=== PATIENT | female | born 1975 | race African-American/Black ===

== ENCOUNTER 2022-06-06 19:04 | Inpatient (IN) | payer OTHER ==
[~2022-06-06] VITALS: Ht 157.5 cm; Wt 80.7 kg
--- NOTE | 2022-06-06 19:04 | NUR ---
PT BIB [facility] FROM HOME C/O NAUSEA/VOMITTING X 2HRS. PT A/OX4. TOLERATING R/A WELL WITH NO RESP DISTRESS. SAFETY MEASURES IN PLACE.
[2022-06-06] MEDS ORDERED: ONDANSETRON HCL/PF 4 MG/2 ML VIAL IVP ONE (19:30)
[2022-06-06] MEDS ORDERED: IV NS 0.9% 1,000 ML BAG IV ONE (19:30)
[2022-06-06] MEDS ORDERED: MECLIZINE HCL 12.5 MG TABLET PO ONE (19:30)
--- NOTE | 2022-06-06 19:49 | NUR ---
PT RETURNED TO ER BED [address]
[2022-06-06 19:51] LABS: ALBUMIN 3.5 g/dL (3.4-5.0); BILIRUBIN,DIRECT 0.1 mg/dL (0.0-0.2); BILIRUBIN,TOTAL 0.4 mg/dL (0.2-1.0); CALCIUM, SERUM 8.5 mg/dL (8.5-10.1); CREATININE 0.8 mg/dL (0.6-1.3); POTASSIUM 4.9 mmol/L (3.5-5.1); TOTAL PROTEIN, SERUM 7.6 g/dL (6.4-8.2)
[2022-06-06] MEDS ORDERED: ONDANSETRON HCL/PF 4 MG/2 ML VIAL ONE (19:53)
[2022-06-06 19:54] LABS: BASOPHILS # (AUTO) 0.1 K/uL (0.0-0.2); BASOPHILS % (AUTO) 1.1 % (0.0-2.0); EOSINOPHILS % (AUTO) 0.7 % (0.0-6.0); HEMATOCRIT 35 % (33-45); HEMOGLOBIN 11.2 g/dL (11.5-14.8); LYMPHOCYTES # (AUTO) 1.6 K/uL (0.8-4.8); LYMPHOCYTES % (AUTO) 17.7 % (20.0-44.0); MEAN CORPUSCULAR HGB CONC 33 g/dl (31.0-36.0); MEAN CORPUSCULAR VOLUME 86 fL (82-100); MONOCYTES # (AUTO) 0.5 K/uL (0.1-1.30); MONOCYTES % (AUTO) 5.8 % (2.0-12.0); NEUTROPHILS # (AUTO) 6.7 K/uL (1.8-8.9); NEUTROPHILS % (AUTO) 74.7 % (43.0-81.0); PLATELET COUNT (AUTO) 324 K/uL (150-450); RED BLOOD CELL COUNT(AUTO) 4.01 MIL/uL (4.0-5.2)
[2022-06-06] MEDS ORDERED: MECLIZINE HCL 25 MG TABLET ONE (19:54)
[2022-06-06] MEDS ORDERED: DIAZEPAM 5 MG/ML 2 ML DISP.SYRIN ONE ×2 (20:46→23:42)
[2022-06-06] MEDS ORDERED: DIAZEPAM 5 MG/ML 2 ML DISP.SYRIN IV ONE ×2 (21:00→23:30)
[2022-06-07] MEDS ORDERED: METOCLOPRAMIDE HCL 10 MG/2 ML VIAL ONE (00:08)
--- NOTE | 2022-06-07 00:22 | NUR ---
COVID AND URINE COLLECTED AND SENT TO LAB
--- NOTE | 2022-06-07 00:25 | NUR ---
PT TAKEN TO CT [facility]IA [facility]
[2022-06-07] MEDS ORDERED: METOCLOPRAMIDE HCL 10 MG/2 ML VIAL IV ONE (00:30)
[2022-06-07] MEDS ORDERED: MAGNESIUM HYDROXIDE 30 ML UDC PO PRN (01:00)
[2022-06-07] MEDS ORDERED: ZOLPIDEM TARTRATE 5 MG TABLET PO PRN (01:00)
[2022-06-07] MEDS ORDERED: ACETAMINOPHEN 325 MG TABLET PO PRN (01:00)
[2022-06-07] MEDS ORDERED: HYDROCODONE/APAP 5/325MG TABLET PO PRN (01:00)
[2022-06-07] MEDS ORDERED: MAG HYDROX/AL HYDROX/SIMETH 30 ML UDC PO PRN (01:00)
[2022-06-07] MEDS ORDERED: Z GUARD REMEDY 4 OZ OINT TP PRN (01:00)
[2022-06-07] MEDS ORDERED: LORAZEPAM 1 MG TABLET PO PRN (01:00)
[2022-06-07] MEDS ORDERED: ONDANSETRON HCL/PF 4 MG/2 ML VIAL IVP PRN (01:00)
--- NOTE | 2022-06-07 01:12 | NUR ---
REPORT GIVEN TO RAJANI Goodman RN FOR OG
[2022-06-07] MEDS ORDERED: MORPHINE SULFATE INJ 4 MG/ML DISP.SYRIN IV PRN (02:30)
--- NOTE | 2022-06-07 03:02 | NUR ---
PT TRANSFERRING TO [facility]. VSS. ALL BELONGINGS WITH PT.
--- NOTE | 2022-06-07 03:05 | NUR ---
MS AUTOMOBILE TESTER NOTE PT TRANSPORTED FROM ER VIA GURNEY TO UNIT AT THIS TIME. PT ADMITTED FROM ER TO [facility] UNDER PILOT PLANT OPERATOR ROSSI FOR ADMITTING DX INTRACTABLE VERTIGO. A/O X4 AND ABLE TO MAKE NEEDS KNOWN. PT STABLE ON ROOM AIR. NO SOB OR S/S OF RESPIRATORY DISTRESS. BREATHING EVEN AND UNLABORED. IV ACCESS L HAND 20 G, INTACT AND PATENT. 2 EPISODES OF EMESIS NOTED, PT STATED TRANSFERRING TO THE BED MADE HER NAUSEOUS. REFUSED ZOFRAN AT THIS TIME. SKIN IS INTACT. NO PAIN AT THIS TIME. ORIENTED TO UNIT, STAFF, AND ROOM. AT BEDSIDE. PT BELONGINGS ACCOUNTED FOR AND BELONGINGS LIST SIGNED. WILL BE TAKING SOME BELONGINGS HOME AND DOCUMENTED ON BELONGINGS LIST. SAFETY PRECAUTIONS IN PLACE. BED IN LOWEST LOCKED POSITION, HOB ELEVATED, SIDE RAILS UP X2, AND CALL LIGHT AND TABLE WITHIN REACH. ALL NEEDS MET AT THIS TIME.
[2022-06-07 03:25] VITALS: BP 138/77
--- NOTE | 2022-06-07 04:25 | NUR ---
RN NOTE PT HAD 2 EPISODES OF EMESIS. PT REQUESTED VALIUM SINCE "IT WAS THE ONLY THING THAT WAS GIVEN IN THE ER THAT HELPED" JOHN RICHEY INFORMED WITH ORDER TO DC ATIVAN AND NEW ORDER OF VALIUM 2 MG IV Q8H PRN. NEW ORDER NOTED AND CARRIED OUT. Addendum: 06/07/22 at 0449 by RAJANI WALTERS RN CLARIFIED WITH JOHN RICHEY IF MEDICATION CAN BE GIVEN NOW EVEN THOUGH LAST DOSE IN ER WAS 0814 AND HE STATED "SURE". CHARGE NURSE JEFFERSON BOB.
[2022-06-07] MEDS: IV NS 0.9% 1,000 ML IV PRN (05:41)
--- NOTE | 2022-06-07 06:47 | NUR ---
MS RN CLOSING NOTE PT RESTING IN BED, VERBALLY RESPONSIVE. AT BEDSIDE. A/O X4 AND ABLE TO MAKE NEEDS KNOWN. PT STABLE ON ROOM AIR. NO SOB OR S/S OF RESPIRATORY DISTRESS. BREATHING EVEN AND UNLABORED. IV ACCESS L HAND 20 G, INTACT AND PATENT, RUNNING NS @ 75 ML/HR. NO COMPLAINTS OF PAIN OR DISCOMFORT AT THIS TIME. NO MORE EPISODES OF EMESIS. SAFETY PRECAUTIONS IN PLACE AT ALL TIMES. BED IN LOWEST LOCKED POSITION, HOB ELEVATED, SIDE RAILS UP X2, AND CALL LIGHT AND TABLE WITHIN REACH. ALL NEEDS MET AT THIS TIME AND WILL ENDORSE TO ONCOMING NURSE FOR OG.
[2022-06-07] MEDS: PANTOPRAZOLE 40 MG TABLET.DR PO SCH (07:30)
--- NOTE | 2022-06-07 07:30 | NUR ---
ms rn received on bed, awake,alert,oriented x4, came in w/ vertigo,still having diziness at this time, all need attended.
[2022-06-07 08:00] VITALS: BP 122/73
[2022-06-07 09:00] VITALS: BP 122/73
--- NOTE | 2022-06-07 09:55 | NUR ---
ms ines was seen by pedro cardoza w/ orders made and carried out.
[2022-06-07] MEDS: DIAZEPAM 5 MG/ML 2 ML DISP.SYRIN IV PRN ×2 (11:00→22:10)
[2022-06-07] MEDS ORDERED: DIAZ2TAB PO (11:43)
[2022-06-07] MEDS ORDERED: METO-295 PO (11:43)
[2022-06-07] MEDS ORDERED: MECL-159 PO (11:43)
[2022-06-07] MEDS: METOCLOPRAMIDE HCL 10 MG/2 ML VIAL IV SCH ×2 (15:31→21:27)
[2022-06-07] MEDS: MECLIZINE HCL 12.5 MG TABLET PO PRN ×2 (15:32→15:53)
--- NOTE | 2022-06-07 16:00 | NUR ---
ms rn vomited once, reglan iv given.
--- NOTE | 2022-06-07 18:33 | NUR ---
ms rn patient on bed, no distress noted, still not tolerating diet, all needs attended.
--- NOTE | 2022-06-07 19:25 | NUR ---
MS MAGDA INITIAL NOTES SEEN PATIENT IN BED AWAKE AND ALERT WATCHING TV AT THIS TIME DENIES ANY PAIN OR ANY DISCOMFORT. STILL WITH IVF OF NS AT 75ML/HR INFUSING ON HER LEFT HAND. PT STATES THAT NO VOMITING BUT STILL FEEL NAUSEA . KEPT HER WARM AND COMFORTABLE AT ALL TIMES. FAMILY AT THE BEDSIDE.
[2022-06-07 20:00] VITALS: BP_SYST 119; BP_SYST 120; BP_SYST 132; BP_DIAS 55; BP_DIAS 60; BP_DIAS 71
--- NOTE | 2022-06-07 22:13 | NUR ---
ms lili notes Pt asking for something for vertigo , i spoke to her that the next meclizine tablet will be at 23:00 , She just had Reglan IVP as ordered. patient seem anxious , I told her another medication to help her relax like Valium 2mg IVP . talked to the patient and agreed to have it. administered by another nurse as ordered. kept patient on sitting position with IVF NS at 75ml/hr infusing at this time. Kept her warm and comfortable at all times. place call light at reach. will continue to monitor.
[2022-06-08] MEDS: METOCLOPRAMIDE HCL 10 MG/2 ML VIAL IV SCH ×4 (02:30→20:30)
[2022-06-08] MEDS: IV NS 0.9% 1,000 ML IV PRN ×2 (05:02→20:41)
--- NOTE | 2022-06-08 05:48 | NUR ---
ms echocardiologist notes patient woke up and I told her that we did not administer her Reglan IVP that should be scheduled around 230 because she's sleeping then Patient states "thank you" and she stated also that she doesn't want the Reglan anymore because she noticed [place] she's having nausea and vomiting at the same time after administered to her 2X . I told her that i will endorse to am nurse to notify her doctor as well. Kept her warm and comfortable at all times. will continue monitoring.
[2022-06-08 06:18] LABS: BASOPHILS % (AUTO) 0.3 % (0.0-2.0); EOSINOPHILS % (AUTO) 1.3 % (0.0-6.0); HEMATOCRIT 31 % (33-45); HEMOGLOBIN 10.2 g/dL (11.5-14.8); LYMPHOCYTES % (AUTO) 37.7 % (20.0-44.0); MEAN CORPUSCULAR HGB CONC 33 g/dl (31.0-36.0); MEAN CORPUSCULAR VOLUME 86 fL (82-100); MONOCYTES # (AUTO) 0.6 K/uL (0.1-1.30); NEUTROPHILS # (AUTO) 4.2 K/uL (1.8-8.9); NEUTROPHILS % (AUTO) 52.7 % (43.0-81.0); PLATELET COUNT (AUTO) 288 K/uL (150-450); RED BLOOD CELL COUNT(AUTO) 3.62 MIL/uL (4.0-5.2); WHITE BLOOD COUNT (AUTO) 8.1 K/uL (4.3-11.0)
[2022-06-08 06:41] LABS: CALCIUM, SERUM 8.1 mg/dL (8.5-10.1); CREATININE 0.6 mg/dL (0.6-1.3); MAGNESIUM 2.2 mg/dL (1.8-2.4); PHOSPHORUS 2.9 mg/dL (2.5-4.9); POTASSIUM 3.4 mmol/L (3.5-5.1)
--- NOTE | 2022-06-08 07:04 | NUR ---
MS MANAGER CONTINUOUS IMPROVEMENT CLOSING NOTES PT BACK TO REST AFTER MORNING CARE DONE. SHE SLEPT WELL AFTER THE VALIUM GIVEN LAST NIGHT. NO N/V NOTED AT THIS TIME. IVF NS AT 75ML/HR INFUSING AT THIS TIME. KEPT HER WARM AND COMFORTABLE AT ALL TIMES. ENDORSE TO AM NURSE FOR CONTINUITY OF CARE. PLACE CALL LIGHT AT REACH.
--- NOTE | 2022-06-08 07:35 | NUR ---
ms rn received on bed, awake,alert,oriented x4,not in deana form of distress, respirations even and unlabored,no sob noted, lungs clear,abdomen soft,positive bowel sounds,denies pain at this time, all needs attended.
--- NOTE | 2022-06-08 09:00 | NUR ---
ms rn patient sleeping ,denies nausea.
[2022-06-08] MEDS ORDERED: POTASSIUM CHLORIDE 20 MEQ TAB.PRT.SR PO ONE ×2 (10:00→16:00)
[2022-06-08] MEDS: PANTOPRAZOLE 40 MG TABLET.DR PO SCH (10:04)
[2022-06-08] MEDS ORDERED: ONDA4TAB5 PO (10:34)
--- NOTE | 2022-06-08 11:00 | NUR ---
ms ines was seen by eliezer vasquez/ orders made and carried out.
[2022-06-08] MEDS: MECLIZINE HCL 12.5 MG TABLET PO PRN ×2 (12:36→20:41)
--- NOTE | 2022-06-08 19:00 | NUR ---
ms rn patient feels sharron hopkins was refuse by patient, loof better,benies any diziness,all needs attended.
--- NOTE | 2022-06-08 19:30 | NUR ---
MS MAGDA INITIAL NOTES Received report from am nurse Michaela and seen pt in bed on sitting position no N/V noted at this time. Patient stated she feel much better than before. She refused have REglan IVP tonight because the side effect on her "she 's more nauseated and vomited like last time". kept her warm and comfortable at all times. Able to verbalize her needs. place call light at reach.
[2022-06-08 20:00] VITALS: BP 136/83
[2022-06-09] MEDS: METOCLOPRAMIDE HCL 10 MG/2 ML VIAL IV SCH ×3 (02:30→14:30)
--- NOTE | 2022-06-09 03:34 | NUR ---
ms lacquer pin press operator notes Pt sleeping comfortably in bed without any discomfort noted. IVF NS at 75ml/hr still infusing. kept her warm and comfortable at all times. will continue monitoring.
[2022-06-09 04:24] VITALS: BP 137/71
[2022-06-09 06:51] LABS: CALCIUM, SERUM 7.7 mg/dL (8.5-10.1); CREATININE 0.7 mg/dL (0.6-1.3)
[2022-06-09 07:06] LABS: POTASSIUM 3.4 mmol/L (3.5-5.1)
--- NOTE | 2022-06-09 07:20 | NUR ---
MS CHAINSTITCH HEMMER CLOSING NOTES PT REMAINS RESTING WITH EYES CLOSED BUT AROUSE EASILY. STABLE THROUGHOUT THE NIGHT. I SAW HER EATING LAST NIGHT WITH SANDWICH WITHOUT ANY N.V NOTED. ONLY GAVE MECLIZINE LAST NIGHT FOR HER VERTIGO. IVF STILL INFUSING. KEPT HER WARM AND COMFORTABLE AT ALL TIMES. ENDORSE TO AM NURSE FOR CONTINUITY OF CARE.
--- NOTE | 2022-06-09 07:30 | NUR ---
ms rn received on bed, awake,alert,oriented x4,not in any form of distress, respirations even and unlabored,no sob noted, lungs are clear,abdomen soft,positive bowel sound, denied nausea, no vomiting, will monitor patient.
[2022-06-09 08:00] VITALS: BP 131/77
[2022-06-09] MEDS ORDERED: POTASSIUM CHLORIDE 20 MEQ TAB.PRT.SR PO ONE (10:00)
--- NOTE | 2022-06-09 10:00 | NUR ---
ms chacon breakfast served,due meds given,tolerated well.
[2022-06-09] MEDS: MECLIZINE HCL 12.5 MG TABLET PO PRN (10:02)
[2022-06-09] MEDS: PANTOPRAZOLE 40 MG TABLET.DR PO SCH (10:02)
--- NOTE | 2022-06-09 11:15 | NUR ---
ms ines was seen by Salome cardoza w/ orders made and carriedout.
--- NOTE | 2022-06-09 12:18 | NUR ---
ms rn on bed,no distress noted.
[2022-06-09 12:42] VITALS: BP 120/68
[2022-06-09 12:44] VITALS: BP 126/86
[2022-06-09 12:45] VITALS: BP 122/77
--- NOTE | 2022-06-09 14:35 | NUR ---
ms internet marketing coordinator instructions given and understood, went home accompanied by ,all needs attended.
== END 2022-06-09 14:35 | disposition home or self-care (01) | DRG 111 ==
LOC: ER 19:06 → MED 06-07 01:54
PROVIDERS: ADMIT Nurse Practitioner Acute Care; ATTEND Nurse Practitioner Acute Care
DX: H81.10 Benign paroxysmal vertigo, unspecified ear (principal); D68.59 Other primary thrombophilia; D64.9 Anemia, unspecified; I95.1 Orthostatic hypotension; E87.1 Hypo-osmolality and hyponatremia; Z20.822 Contact with and (suspected) exposure to COVID-19; E66.9 Obesity, unspecified; Z68.32 Body mass index [BMI] 32.0-32.9, adult; Z79.899 Other long term (current) drug therapy; E86.1 Hypovolemia
CPT/HCPCS: 36415; 70450-TC; 80048-TC; 80076-TC; 83690-TC; 83735-TC; 84100-TC; 84703-TC; 85025-TC; 87081-TC; C9803; G0378; J2405; J2765; J3360; J7030; J8597